=== PATIENT | male | born 1955 | race Caucasian/White ===

== ENCOUNTER 2017-05-05 19:43 | Emergency (ER) | payer MEDICAID ==
[2017-05-05] MEDS ORDERED: Sodium Chloride 0.9% 2,000 ML IV ONE (20:11)
--- NOTE | 2017-05-05 20:18 | ED Physician Chart ---
ED Chief Complaint/HPI - Patient Information Date Seen:: 05/05/17 Time Seen:: 19:45 Chief Complaint:: palpitations History of Present Illness:: 1 hour after eating a small amount of marijuana patient developed dryness of his mouth and palpitations. No chest pain. No chill, fever, vomiting, diarrhea. Patient took the marijuana today for right shoulder pain. Allergies:: Allergies Allergy/AdvReac Type Severity Reaction Status Date / Time No Known Allergies Allergy Verified 05/05/17 20:03 Vitals:: Vital Signs - 8 hr 05/05/17 19:45 Temp 98.3 F HR 142 RR 18 BP 148/94 O2 Sat % 98 Historian:: Patient Review:: Nurse's Note Reviewed ED Review of Systems - Review of Systems General/Constitutional: No fever, No chills Skin: No skin lesions Head: No headache Eyes: No loss of vision ENT: No earache Neck: No neck pain Cardio Vascular: No chest pain, Palpitations Pulmonary: No SOB GI: No nausea, No vomiting, No diarrhea G/U: No dysuria Musculoskeletal: No bone or joint pain Endocrine: No polyuria Psychiatric: No prior psych history, No depression Hematopoietic: No bruising Allergic/Immuno: No urticaria Neurological: No syncope ED Past Medical History - Past Medical History Past Medical History: No significant medical hx Family History: None Social History: Non Smoker, No Alcohol Surgical History: None Psychiatricy History: None Medication: None Family Medical History - Family Member Mother History Unknown: Yes ED Labs/Radiology/EKG Results - Lab Results Results: Laboratory Results - last 24 hr 05/05/17 05/05/17 05/05/17 20:31 20:31 20:31 WBC 7.1 RBC 4.89 Hgb 15.0 Hct 44.8 MCV 91.5 MCH 30.6 H MCHC Differential 33.4 RDW 13.3 Plt Count 200 MPV 8.7 Neutrophils (Manual) 39 L Lymphocytes 49 Monocytes 5 Eosinophils 4 Basophils 2 Atypical Lymphocytes 1 Platelet Estimate ADEQUATE Sodium 136 Potassium 3.3 L Chloride 105 Carbon Dioxide 20.2 L Anion Gap 14.1 BUN 17 Creatinine 1.0 Est GFR ( Amer) > 60.0 Est GFR (Non-Af Amer) > 60.0 BUN/Creatinine Ratio 17.0 Glucose 201 H Hemoglobin A1c % 5.4 Calcium 9.1 Magnesium 2.1 ED Septic Shock - . Is Septic Shock (SBP<90, OR Lactate>4 mmol\L) present?: No - <6hrs of presentation: Vital Signs: Vital Signs - 8 hr 05/05/17 19:45 Temp 98.3 F HR 142 RR 18 BP 148/94 O2 Sat % 98 ED Reassessment (Disposition) - Reassessment Reassessment:: At 2046 patient's heart rate was 80 and patient appeared to be sleeping. Patient's palpitations most likely due to the marijuana he ate. Reassessment Condition:: Improved - Diagnosis Diagnosis:: Palpitations; hypokalemia - Aftercare/Follow up Instructions Aftercare/Follow-Up Instructions:: Refer to Discharge Instructions - Patient Disposition Discharge/Transfer:: Home Condition at Disposition:: Stable, Improved
[2017-05-05 20:43] LABS: HEMATOCRIT 44.8 % (41.0-60); MEAN CELL VOLUME 91.5 fl (80-99); MEAN CORPUSCULAR HEMOGLOBIN 30.6 pg (26.0-30.0); MEAN CORPUSCULAR HGB CONC 33.4 pg (28.0-36.0); MEAN PLATELET VOLUME 8.7 fl; PLATELET COUNT 200 Th/cmm (150-400); RED BLOOD COUNT 4.89 Mil/cmm (4.30-5.70); RED CELL DISTRIBUTION WIDTH 13.3 % (11.5-20.0); WHITE BLOOD COUNT 7.1 Th/cmm (4.8-10.8)
[2017-05-05 20:58] LABS: ANION GAP 14.1 (7.0-16.0); BUN - UREA NITROGEN 17 mg/dL (7-25); CALCIUM SERUM 9.1 mg/dL (8.6-10.3); CARBON DIOXIDE 20.2 mEq/L (21.0-31.0); CHLORIDE 105 mEq/L (98-107); GLUCOSE 201 mg/dL (70-105); MAGNESIUM 2.1 mg/dL (1.9-2.7); POTASSIUM SERUM 3.3 mEq/L (3.5-5.1); SODIUM SERUM 136 mEq/L (136-145)
[2017-05-05 21:27] LABS: BASOPHIL 2 % (0-3); EOSINOPHIL 4 % (0-5); NEUTROPHILS 39 % (40-80); PLATELET ESTIMATE ADEQUATE (NORMAL); TOTAL CELLS COUNTED 100
[2017-05-05] MEDS ORDERED: Potassium Chloride 20 mEq ER Tab PO ONE ×2 (21:51→22:00)
== END 2017-05-05 23:05 | disposition home or self-care (01) ==
LOC: ER 19:43
DX: R00.2 Palpitations (principal); E87.6 Hypokalemia
CPT/HCPCS: 99284; 96374; 36415; 85007; 85027; 83036; 83735; 80048; J2060; Z7502